=== PATIENT | female | born 1995 | race Caucasian/White ===

== ENCOUNTER 2016-03-14 12:59 | Emergency (ER) | payer BC, OTHER ==
[~2016-03-14] VITALS: Ht 167.6 cm; Wt 63.0 kg
[2016-03-14 13:19] VITALS: TEMP 36.9; Ht 167.6 cm; Wt 63.0 kg
[2016-03-14] MEDS ORDERED: NORGTAB52 PO (14:03)
[2016-03-14 14:47] VITALS: O2SAT 93
[2016-03-14 14:50] LABS: BASO % 0.7 %; BASO ABS # 0.04 K/uL (0-0.2); COMPLETE YES; HEMATOCRIT 40.4 % (37-47); IG% 0.2 %; LYMPH % 31.2 %; LYMPH ABS # 1.68 K/uL (1.2-3.4); MEAN CELL VOLUME 86.1 fL (80-100); MEAN CORPUSCULAR HEMOGLOBIN 29.9 pg (25-34); MEAN CORPUSCULAR HGB CONC 34.7 g/dl (32-36); MEAN PLATELET VOLUME 10.2 fL (7.4-10.4); MONO % 10.6 %; NEUT % 54.3 %; PLATELET COUNT 258 K/uL (130-400); RED BLOOD COUNT 4.69 M/uL (4.2-5.4); WHITE BLOOD COUNT 5.39 K/uL (4.8-10.8)
[2016-03-14] MEDS ORDERED: SODIUM CHLORIDE 0.9% 1000ML 1,000 ML IV STA (15:14)
[2016-03-14 15:23] LABS: URINE APPEARANCE CLOUDY (CLEAR); URINE BILIRUBIN NEG (NEG); URINE COLOR DK YELLOW; URINE EPITHELIAL CELL AUTO >30 /lpf (0-5); URINE NITRITE NEG (NEG); URINE PH 5.5 (4.5-7.5); URINE SPECIFIC GRAVITY 1.025 (1.000-1.030); UROBILINOGEN NEG (NEG)
[2016-03-14 15:24] LABS: ALKALINE PHOSPHATASE 50 U/L (45-117); ALT/SGPT 21 U/L (12-78); AST/SGOT 18 U/L (15-37); BLOOD UREA NITROGEN 9 mg/dl (7-18); BUN/CREATININE RATIO 16.4 (10-20); CALCIUM 9.4 mg/dl (8.5-10.1); CARBON DIOXIDE 23 mmol/L (21-32); CHLORIDE 106 mmol/L (98-107); CREATININE 0.56 mg/dl (0.60-1.20); GLUCOSE 74 mg/dl (70-99); POTASSIUM 3.9 mmol/L (3.5-5.1); SODIUM 142 mmol/L (136-145)
[2016-03-14] MEDS: KETOROLAC TROMETHAMINE 30 MG/ML VIAL IV STA ×2 (15:26→15:37)
[2016-03-14 15:33] LABS: MANUAL MICROSCOPIC REQUIRED? NO; REVIEW REQ? NO
--- NOTE | 2016-03-14 15:52 | EMERGENCY ROOM VISIT NOTE ---
History Report prepared by Anuel: Laura Hargrove Under the Supervision of: Dr. Jones Souza M.D. First contact with patient: 14:15 Chief Complaint: VAGINAL BLEEDING Stated Complaint: HEAVY VAGINAL BLEEDING (X3 DAYS), BACK PAIN, WEAK History of Present Illness The patient is a 20 year old female who presents to the Emergency Room with complaints of worsening irregular vaginal bleeding for the past 3 days. The patient had her menstrual period last week and it was normal and ended 6 days ago. She saw her ob-dust box worker last week because she was having some dysuria. She had a urine sample that was negative and the patient was placed on Bactrim. She has received 3 doses of Bactrim. Three days ago she started to have heavy abnormal vaginal bleeding. She has been changing her pad every 30 minutes. She called her ob-dust box worker 3 days ago and was advised to come to the ED if it worsened. She reports some lower abdominal pain. She rates her pain as a 5/10 in severity. The patient denies fever, nausea, and vomiting. She does take OCP and has not missed any doses. Source of History: patient Onset: 3 days ago Position: other (vagina) Symptom Intensity: 5/10 Quality: other (bleeding) Timing: worsening Associated Symptoms: + abdominal pain, + urinary symptoms, No fevers, No nausea, No vomiting Review of Systems See HPI for pertinent positives & negatives. A total of 10 systems reviewed and were otherwise negative. Past Medical & Surgical Medical Problems: (1) No significant active problems Family History Cancer Diabetes mellitus Gallbladder disease Hypertension Kidney disease Kidney stones Social History Smoking Status: Never Smoker Smokeless Tobacco Use: No Alcohol Use: none Housing Status: lives with family Occupation Status: [employer] student Current/Historical Medications Scheduled Norgestimate-Ethinyl Estradiol (Tri-Previfem), 1 TAB PO DAILY Allergies Coded Allergies: No Known Allergies (Unverified , 03/14/16) Physical Exam Vital Signs Date Time Temp Pulse Resp B/P Pulse Ox O2 Delivery O2 Flow Rate FiO2 03/14/16 17:19 81 18 117/77 98 Room Air 03/14/16 16:37 82 03/14/16 16:00 86 16 118/77 97 Room Air 03/14/16 14:47 93 Room Air 03/14/16 13:19 36.9 99 18 146/80 100 Room Air Physical Exam GENERAL: Patient is a healthy-appearing well-nourished 20 year old female HEAD: Normocephalic atraumatic EYES: Ocular movements intact pupils equal and react to light OROPHARYNX mucous membranes are moist no exudates present no erythema or edema present NECK: Supple no nuchal rigidity CHEST: Good equal expansion LUNGS: Clear and equal to auscultation CARDIAC: Normal S1 and S2 ABDOMEN: Soft nontender no guarding PELVIC: No adnexal tenderness, no evidence of chandelier sign, moderate amount of blood in the vaginal vault. BACK: No CVA tenderness EXTREMITIES: No pain upon palpation normal muscle strength in all groups no clubbing cyanosis or edema NEURO: Patient is following commands is answering questions appropriately. Alert and oriented x3 Cranial Nerves 2-12 grossly intact Medical Decision & Procedures ER Provider Diagnostic Interpretation: Radiology results as stated below per my review and radiologist interpretation: PELVIC ULTRASOUND, TRANSABDOMINAL AND TRANSVAGINAL HISTORY: Vaginal bleeding. COMPARISON: None. FINDINGS: Uterus: 7.1 x 3.2 x 4.1 cm. No masses. Endometrial stripe: 2 mm in thickness. Right ovary: Normal in size and demonstrates normal color flow. Dominant cyst measuring 2.6 cm. Left ovary: Normal in size and demonstrates normal color flow. Miscellaneous:Trace fluid within the right adnexa. This is likely physiologic. IMPRESSION: No significant abnormality identified within the pelvis. Electronically signed by: Thor Garcia M.D. 03/14/2016 4:33 PM Dictated Date/Time: 03/14/2016 4:31 PM Laboratory Results 03/14/16 14:31 Red Blood Count 4.69, Mean Corpuscular Volume 86.1, Mean Corpuscular Hemoglobin 29.9, Mean Corpuscular Hemoglobin Concent 34.7, Mean Platelet Volume 10.2, Neutrophils (%) (Auto) 54.3, Lymphocytes (%) (Auto) 31.2, Monocytes (%) (Auto) 10.6, Eosinophils (%) (Auto) 3.0, Basophils (%) (Auto) 0.7, Neutrophils # (Auto ) 2.93, Lymphocytes # (Auto) 1.68, Monocytes # (Auto) 0.57, Eosinophils # (Auto ) 0.16, Basophils # (Auto) 0.04 03/14/16 14:31 Test 03/14/16 14:30 1/16/17 14:31 03/14/16 15:11 Urine Color DK YELLOW Urine Appearance CLOUDY (CLEAR) Urine pH 5.5 (4.5-7.5) Urine Specific [place] 1.025 (1.000-1.030) Urine Protein 1+ (NEG) Urine Glucose (UA) NEG (NEG) Urine Ketones TRACE (NEG) Urine Occult Blood 3+ (NEG) Urine Nitrite NEG (NEG) Urine Bilirubin NEG (NEG) Urine Urobilinogen NEG (NEG) Urine Leukocyte Esterase SMALL (NEG) Urine WBC (Auto) 10-30 /hpf (0-5) Urine RBC (Auto) >30 /hpf (0-4) Urine Hyaline Casts (Auto) 1-5 /lpf (0-5) Urine Epithelial Cells (Auto) >30 /lpf (0-5) Urine Bacteria (Auto) NEG (NEG) Urine Test NEG (NEG) White Blood Count 5.39 K/uL (4.8-10.8) Red Blood Count 4.69 M/uL (4.2-5.4) Hemoglobin 14.0 g/dL (12.0-16.0) Hematocrit 40.4 % (37-47) Mean Corpuscular Volume 86.1 fL (80-100) Mean Corpuscular Hemoglobin 29.9 pg (25-34) Mean Corpuscular Hemoglobin Concent 34.7 g/dl (32-36) Platelet Count 258 K/uL (130-400) Mean Platelet Volume 10.2 fL (7.4-10.4) Neutrophils (%) (Auto) 54.3 % Lymphocytes (%) (Auto) 31.2 % Monocytes (%) (Auto) 10.6 % Eosinophils (%) (Auto) 3.0 % Basophils (%) (Auto) 0.7 % Neutrophils # (Auto) 2.93 K/uL (1.4-6.5) Lymphocytes # (Auto) 1.68 K/uL (1.2-3.4) Monocytes # (Auto) 0.57 K/uL (0.11-0.59) Eosinophils # (Auto) 0.16 K/uL (0-0.5) Basophils # (Auto) 0.04 K/uL (0-0.2) RDW Standard Deviation 42.9 fL (36.4-46.3) RDW Coefficient of Variation 13.6 % (11.5-14.5) Immature Granulocyte % (Auto) 0.2 % Immature Granulocyte # (Auto) 0.01 K/uL (0.00-0.02) Anion Gap 13.0 mmol/L (3-11) Est Creatinine Clear Calc Drug Dose 149.9 ml/min Estimated GFR () > 150.0 Estimated GFR (Non- 134.2 BUN/Creatinine Ratio 16.4 (10-20) Calcium Level 9.4 mg/dl (8.5-10.1) Total Bilirubin 0.2 mg/dl (0.2-1) Aspartate Amino Transf (AST/SGOT) 18 U/L (15-37) Alanine Aminotransferase (ALT/SGPT) 21 U/L (12-78) Alkaline Phosphatase 50 U/L (45-117) Total Protein 7.3 gm/dl (6.4-8.2) Albumin 3.6 gm/dl (3.4-5.0) Globulin 3.7 gm/dl (2.5-4.0) Albumin/Globulin Ratio 1.0 (0.9-2) Chemistry Specimen Hemolysis Date/Time Source Procedure Growth Status 03/14/16 15:11 Cervix Swab Trichomonas Preparation - Final Complete Labs reviewed by ED physician. Medications Administered Medications (Trade) Dose Ordered Sig/Shaheen Route Start Time Stop Time Status Last Admin Dose Admin Sodium Chloride (Nss 1000ml) 1,000 ml @ 999 mls/hr Q1H1M STAT IV 03/14/16 15:14 03/14/16 16:14 DC 03/14/16 15:26 999 MLS/HR Ketorolac Tromethamine (Toradol Inj) 30 mg NOW STAT IV 03/14/16 15:14 03/14/16 15:15 DC 03/14/16 15:37 30 MG ED Course 1415: Past medical records reviewed. The patient was evaluated in room B3B. A complete history and physical examination was performed. 1507: At this time I performed a pelvic examination. Please see the physical examination for my findings. 1514: Toradol 30 mg IV, NSS 1000 ml @ 999 mls/hr IV 1701: I reassessed the patient at this time. She is feeling better and resting comfortably. I discussed the results and treatment plan with the patient. I answered all pertaining questions that she had. She expressed understanding and verbalized agreement. The patient will be discharged home. Medical Decision Differential diagnosis: Etiologies such as ectopic , dysfunction uterine bleeding, bleeding dyscrasia, trauma, infection, as well as others were entertained. This is a 20-year-old female who presents emergency department complaining of abnormal vaginal bleeding. The patient has just had her period. Despite this she has been bleeding for the past 3 days. Given that she has had vaginal bleeding for the past 3 days the patient's hemoglobin is still 14.6. She was sent for an ultrasound which was normal. The patient is not . The patient was given Toradol in the emergency department. Repeat examination revealed improvement in her symptoms. I'm going to continue the patient on ibuprofen at home with follow-up with OB. Patient was in agreement with the treatment plan. Impression Primary Impression: Abnormal vaginal bleeding Scribe Attestation The scribe's documentation has been prepared under my direction and personally reviewed by me in its entirety. I confirm that the note above accurately reflects all work, treatment, procedures, and medical decision making performed by me. Departure Information Dispostion Home / Self-Care Referrals Radha Valderrama (PCP) Nick Kirby M.D. Forms HOME CARE DOCUMENTATION FORM, IMPORTANT VISIT INFORMATION, WORK / SCHOOL INSTRUCTIONS Patient Instructions ED Bleed Irregular Vaginal, My [facility] Additional Instructions Follow up with DR Kirby's office Take 600 mg Ibuprofen every 6 hours You have been examined and treated today on an emergency basis only. This is not a substitute for, or an effort to provide, complete comprehensive medical care. It is impossible to recognize and treat all injuries or illnesses in a single emergency department visit. It is therefore important that you follow up closely with [facility]. Call as soon as possible for an appointment. Thank you for your time and consideration. I look forward to speaking with you again soon. Please don't hesitate to call us if you have any questions.
--- NOTE | 2016-03-14 16:35 | DIAGNOSTIC IMAGING REPORT ---
PELVIC ULTRASOUND, TRANSABDOMINAL AND TRANSVAGINAL HISTORY: Vaginal bleeding. COMPARISON: None. FINDINGS: Uterus: 7.1 x 3.2 x 4.1 cm. No masses. Endometrial stripe: 2 mm in thickness. Right ovary: Normal in size and demonstrates normal color flow. Dominant cyst measuring 2.6 cm. Left ovary: Normal in size and demonstrates normal color flow. Miscellaneous:Trace fluid within the right adnexa. This is likely physiologic. IMPRESSION: No significant abnormality identified within the pelvis. Electronically signed by: Thor Garcia M.D. 03/14/2016 4:33 PM Dictated Date/Time: 03/14/2016 4:31 PM
[2016-03-14 17:19] VITALS: BP 117/77; PULSE 81; O2SAT 98
[2016-03-17 01:00] LABS: CHLAMYDIA TRACH RNA*** NOT DETECTED (NOT DETECTED); GC (NEIS GONORRHOEAE)RNA** NOT DETECTED (NOT DETECTED)
== END 2016-03-14 17:21 | disposition home or self-care (01) ==
LOC: C.EDB 13:01
DX: N93.9 Abnormal uterine and vaginal bleeding, unspecified (principal); Z79.3 Long term (current) use of hormonal contraceptives; Z83.3 Family history of diabetes mellitus; Z82.49 Family history of ischemic heart disease and other diseases of the circulatory system; Z83.79 Family history of other diseases of the digestive system; Z84.1 Family history of disorders of kidney and ureter